=== PATIENT | female | born 1965 ===

== ENCOUNTER 2019-05-07 09:19 | Outpatient (CLI) | payer OTHER | END 2019-05-07 09:21 | disposition home or self-care (01) | LOC: SONOGRAMA 09:19 | DX: E04.1 Nontoxic single thyroid nodule (principal) ==

== ENCOUNTER 2021-01-05 09:54 | Outpatient (CLI) | payer OTHER | END 2021-01-05 09:58 | disposition home or self-care (01) | LOC: SONOGRAMA 09:54 | PROVIDERS: ATTEND Pathology Anatomic Pathology & Clinical Pathology | DX: E04.2 Nontoxic multinodular goiter (principal) ==